=== PATIENT | male | born 1955 | race Caucasian/White ===

== ENCOUNTER 2023-04-26 06:24 | Day surgery (SDC) | payer MEDICAID ==
[~2023-04-26] VITALS: Ht 167.6 cm; Wt 64.4 kg
[2023-04-26] MEDS ORDERED: DEXAMETHASONE SOD PHOSPHATE 4 MG/ML VIAL ONE (07:30)
[2023-04-26] MEDS ORDERED: fentaNYL CITRATE/PF 100 MCG/2 ML AMP ONE (07:30)
[2023-04-26] MEDS ORDERED: ONDANSETRON HCL 4 MG/2 ML VIAL ONE (07:30)
[2023-04-26] MEDS ORDERED: LR 1,000 ML IV.SOLN IV ONE (07:30)
[2023-04-26] MEDS ORDERED: SUCCINYLCHOLINE CHLORIDE 20 MG/ML(QUELICIN) ONE (07:30)
[2023-04-26] MEDS ORDERED: LIDOCAINE 2%, 20 ML MDV ONE (07:30)
[2023-04-26] MEDS ORDERED: CIPROFLOXACIN HCL 0.3% EYE DRP 2.5 ML DROPS ONE (07:30)
[2023-04-26] MEDS ORDERED: OXYMETAZOLINE HCL 0.05% NASAL SPRAY NS ONE (07:30)
[2023-04-26] MEDS ORDERED: NS IRRIG SOLN 1000 ML IR ONE (07:30)
[2023-04-26] MEDS ORDERED: PROPOFOL 200MG/ 20ML VIAL (DIPRIVAN) IV ONE (07:30)
[2023-04-26] MEDS ORDERED: MIDAZOLAM HCL 2 MG/2 ML VIAL (VERSED) ONE (07:30)
[2023-04-26] MEDS ORDERED: DESFLURANE 15 MIN GAS INH ONE (07:30)
[2023-04-26 07:51] VITALS: O2SAT 99
[2023-04-26] MEDS ORDERED: ACETAMINOPHEN I.V. 1000 MG 100 ML IV ONE (08:25)
[2023-04-26] MEDS ORDERED: LABETALOL 100 MG/ 20ML VIAL IVP PRN (08:45)
[2023-04-26] MEDS ORDERED: LR 1,000 ML IV SCH (08:45)
[2023-04-26] MEDS ORDERED: HYDROmorphone 1 MG/ML INJ. CARTRIDGE IVP PRN ×2 (08:45)
[2023-04-26] MEDS ORDERED: METOCLOPRAMIDE HCL 10 MG/2 ML VIAL IVP PRN (08:45)
[2023-04-26] MEDS ORDERED: MEPERIDINE HCL/PF 25 MG/ML DISP.SYRIN IVP PRN (08:45)
[2023-04-26] MEDS ORDERED: hydrALAZINE HCL 20 MG/ML VIAL IVP PRN (08:45)
[2023-04-26 12:32] VITALS: BP_SYST 156; PULSE 69; RESP 20
== END 2023-04-26 11:50 | disposition home or self-care (01) ==
LOC: SDS 06:24 → SMU 06:35 → SDS 11:50
PROVIDERS: ATTEND Otolaryngology
DX: H69.82 Other specified disorders of Eustachian tube, left ear (principal); H90.3 Sensorineural hearing loss, bilateral; I10 Essential (primary) hypertension; H65.22 Chronic serous otitis media, left ear; H68.103 Unspecified obstruction of Eustachian tube, bilateral; C11.9 Malignant neoplasm of nasopharynx, unspecified; Z79.899 Other long term (current) drug therapy
CPT/HCPCS: 69705; 69436; 88305; J1100; J2001; J3465; J2405; J2704; J0330; J3010; J7120; L8699; J0131